=== PATIENT | male | born 2005 | race Caucasian/White ===

== ENCOUNTER 2025-02-16 20:34 | Emergency (ER) | payer SELFPAY ==
[2025-02-16 20:44] VITALS: BP 148/74; PULSE 82; RESP 16; TEMP 37.3; O2SAT 99; BMI 20.5
--- NOTE | 2025-02-16 23:05 | ED.GENADULT ---
HPI - General Adult General Chief complaint: Laceration/Wound Stated complaint: Lac R index finger Time Seen by Provider: 02/16/25 23:05 History of Present Illness HPI narrative: Patient presents with finger laceration from work. 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 Patient has compression on finger controlling bleeding. 19-year-old young man presenting to the emergency department following a laceration to his right index finger Related Data Home Medications ?Medication ?Instructions ?Recorded ?Confirmed No Known Home Medications 02/16/25 02/16/25 Allergies Allergy/AdvReac Type Severity Reaction Status Date / Time amoxicillin Allergy Intermediate Hives Verified 02/16/25 20:49 Exam Const: Vital Signs, click to edit/add: Vital Signs - 24 hr 02/16/25 20:44 Temperature 99.1 F Pulse Rate [Pulse Oximeter] 82 Respiratory Rate 16 Blood Pressure [Ri ght Upper Arm] 148/74 H Pulse Oximetry 99 Oxygen Delivery Me thod Room Air Course Vital Signs Vital signs: Initial Vital Signs Temperature 99.1 F 02/16/25 20:44 Temperature Source Oral 02/16/25 20:44 Pulse Rate 82 02/16/25 20:44 Respiratory Rate 16 02/16/25 20:44 Blood Pressure 148/74 H 02/16/25 20:44 Blood Pressure Mean 98 02/16/25 20:44 Pulse Oximetry 99 02/16/25 20:44 Oxygen Delivery Method Room Air 02/16/25 20:44 Vital Signs Temperature 99.1 F 02/16/25 20:44 Pulse Rate 82 02/16/25 20:44 Respiratory Rate 16 02/16/25 20:44 Blood Pressure 148/74 H 02/16/25 20:44 Pulse Oximetry 99 02/16/25 20:44 Oxygen Delivery Method Room Air 02/16/25 20:44 Temperature 99.1 F 02/16/25 20:44 Pulse Rate 82 02/16/25 20:44 Respiratory Rate 16 02/16/25 20:44 Blood Pressure 148/74 H 02/16/25 20:44 Pulse Oximetry 99 02/16/25 20:44 Oxygen Delivery Method Room Air 02/16/25 20:44 Discharge Plan Discharge Prescriptions: No Action No Known Home Medications
== END 2025-02-17 00:33 | disposition left against medical advice (07) ==
LOC: ED 02-17 00:29
PROVIDERS: Emergency Provider Family Medicine
DX: Z53.21 Procedure and treatment not carried out due to patient leaving prior to being seen by health care provider (principal)